=== PATIENT | female | born 1985 | race African-American/Black ===

== ENCOUNTER 2017-04-02 18:51 | Inpatient (IN) | payer MEDICAID ==
[~2017-04-02] VITALS: Ht 167.6 cm; Wt 79.8 kg
[2017-04-02] VITALS (22 sets, daily range): BP systolic 79–115; BP diastolic 52–70; PULSE 62–127; RESP 13–16; TEMP 98.4
[2017-04-02] MEDS: LACTATED RINGER'S 1000 ML INJ 1,000 ML IV SCH ×2 (19:42→20:51)
[2017-04-02 20:22] LABS: AUTOMATED NEUTROPHIL # 8.1 TH/MM3 (1.8-7.7); BASOPHIL % 0.5 % (0.0-2.0); EOSINOPHIL # 0.1 TH/MM3 (0-0.4); EOSINOPHIL % 0.8 % (0.0-4.0); HEMATOCRIT 26.2 % (35.0-46.0); HEMO FLAGS DIFF FINAL; LYMPH % 14.2 % (9.0-44.0); LYMPHOCYTE # 1.5 TH/MM3 (1.0-4.8); MEAN CELL VOLUME 62.7 FL (80.0-100.0); MEAN CORPUSCULAR HEMOGLOBIN 19.7 PG (27.0-34.0); MEAN CORPUSCULAR HGB CONC 31.4 % (32.0-36.0); MONO % 5.9 % (0.0-8.0); NEUT % 78.6 % (16.0-70.0); PLATELET COUNT 328 TH/MM3 (150-450); RED BLOOD COUNT 4.18 MIL/MM3 (4.00-5.30); RED CELL DISTRIBUTION WIDTH 16.5 % (11.6-17.2); WHITE BLOOD COUNT 10.3 TH/MM3 (4.0-11.0)
[2017-04-02 20:27] LABS: BACTERIA, URINE RARE /hpf; BLOOD, URINE NEG (NEG); COMMENT (UR) CULT NOT INDICATED; CULTURE IF INDICATED CULT NOT INDICATED; GLUCOSE,URINE NEG (NEG); KETONE, URINE 40 mg/dL (NEG); MUCUS URINE FEW /lpf (OCC); NITRITE,URINE NEG (NEG); SQUAMOUS EPITHELIAL CELL URINE 2 /hpf (0-5); URINE COLOR YELLOW (YELLW/STRAW)
[2017-04-02] MEDS ORDERED: MAGNESIUM SULFATE 4 GM PREMIX 100 ML ONE (20:45)
[2017-04-02] MEDS ORDERED: MAGNESIUM SULFATE 40 GM PREMIX 1,000 ML ONE (20:46)
[2017-04-02] MEDS ORDERED: MAGNESIUM SULFATE 40 GM PREMIX 1,000 ML IV SCH (20:51)
[2017-04-02 20:52] LABS: ALKALINE PHOSPHATASE 109 U/L (45-117); ALT (GPT) 9 U/L (10-53); ANION GAP 12 MEQ/L (5-15); AST (GOT) 22 U/L (15-37); BLOOD UREA NITROGEN 6 MG/DL (7-18); CHLORIDE 102 MEQ/L (98-107); GLOMERULAR FILTRATION RATE 109 ML/MIN (>89); POTASSIUM 3.4 MEQ/L (3.5-5.1); SODIUM (NA) 135 MEQ/L (136-145); TOTAL BILIRUBIN ADULT 0.6 MG/DL (0.2-1.0)
[2017-04-02] MEDS ORDERED: MAGNESIUM SULFATE 4 GM PREMIX 100 ML IV ONE (21:00)
[2017-04-02] MEDS ORDERED: ACETAMINOPHEN 325 MG TAB PO PRN (21:00)
[2017-04-02] MEDS ORDERED: LIDOCAINE 2% JELLY 30 ML TUBE ONE (21:15)
[2017-04-02] MEDS: levETIRAcetam 500 MG TAB PO SCH (21:15)
[2017-04-02 21:26] LABS: AMPHETAMINE, URINE NEG (NEG); BARBITURATES, URINE NEG (NEG); COCAINE, URINE NEG (NEG)
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
[2017-04-02] MEDS: BETAMETHASONE SOD PHOS/ACETATE SUSP 30 MG/5 ML VIAL IM SCH (22:32)
[2017-04-03] VITALS (61 sets, daily range): BP systolic 91–119; BP diastolic 38–64; PULSE 62–94; RESP 16–18; TEMP 97.8–98.4
[2017-04-03] MEDS: IRON SUCROSE INJ 200 MG in SODIUM CHLORIDE 0.9% INJ 100 ML IV SCH ×2 (01:00→23:00)
[2017-04-03] MEDS: LACTATED RINGER'S 1000 ML INJ 1,000 ML IV SCH ×2 (03:42→04:51)
--- NOTE | 2017-04-03 08:17 | PD.OB.ANTE ---
Subjective Diagnosis: (1) uterine contractions in third trimester, antepartum (2) History of delivery, currently in third trimester Interval History No lof, no vb. Still has back pain and pelvic pain that is 6/10 in intensity. Antepartum ROS: Reports: movement normal Objective Vital Signs Vital Signs Date Time Temp Pulse Resp B/P Pulse Ox O2 Delivery O2 Flow Rate FiO2 04/03/17 08:00 71 04/03/17 07:30 76 04/03/17 07:25 71 04/03/17 07:20 70 04/03/17 07:15 71 04/03/17 07:10 70 04/03/17 07:05 80 04/03/17 06:30 72 04/03/17 06:23 98.1 04/03/17 06:16 16 04/03/17 06:15 69 04/03/17 06:14 91/38 04/03/17 05:05 18 04/03/17 05:00 75 106/59 04/03/17 04:15 18 04/03/17 04:00 73 98/64 04/03/17 04:00 89 04/03/17 03:43 16 04/03/17 03:10 76 04/03/17 03:05 72 04/03/17 03:00 74 105/55 04/03/17 03:00 77 04/03/17 02:35 16 04/03/17 02:10 63 04/03/17 02:05 68 04/03/17 02:00 65 106/54 04/03/17 02:00 69 04/03/17 01:55 67 04/03/17 01:55 16 04/03/17 01:54 71 104/58 04/03/17 01:50 62 04/03/17 01:45 64 04/03/17 01:00 16 04/03/17 00:15 16 04/03/17 00:00 70 99/55 04/02/17 23:15 98.4 04/02/17 23:11 72 16 115/54 04/02/17 23:10 67 04/02/17 23:05 68 04/02/17 23:01 77 79/57 04/02/17 23:00 75 04/02/17 22:44 13 04/02/17 22:40 69 04/02/17 22:38 62 108/55 04/02/17 22:35 69 04/02/17 22:30 73 04/02/17 21:26 16 04/02/17 21:25 127 04/02/17 21:20 65 112/67 04/02/17 21:20 66 04/02/17 21:15 76 112/57 04/02/17 21:15 73 04/02/17 21:05 70 04/02/17 21:02 16 04/02/17 21:01 69 103/52 04/02/17 21:00 71 04/02/17 19:25 126 113/70 04/02/17 19:20 70 04/02/17 19:15 90 Lab & Micro Results Test 04/02/17 04/02/17 04/02/17 19:06 19:40 20:05 Urine Color YELLOW Urine Turbidity CLEAR Urine pH 6.0 Urine Specific [place] 1.022 Urine Protein 30 mg/dL Urine Glucose (UA) NEG mg/dL Urine Ketones 40 mg/dL Urine Occult Blood NEG Urine Nitrite NEG Urine Bilirubin NEG Urine Urobilinogen LESS THAN 2.0 MG/DL Urine Leukocyte Esterase NEG Urine RBC LESS THAN 1 /hpf Urine WBC 2 /hpf Urine Squamous Epithelial 2 /hpf Cells Urine Bacteria RARE /hpf Urine Mucus FEW /lpf Microscopic Urinalysis Comment CULT NOT INDICATED Urine Opiates Screen NEG Urine Barbiturates Screen NEG Urine Amphetamines Screen NEG Urine Benzodiazepines Screen NEG Urine Cocaine Screen NEG Urine Cannabinoids Screen POS Fibronectin NEGATIVE White Blood Count 10.3 TH/MM3 Red Blood Count 4.18 MIL/MM3 Hemoglobin 8.2 GM/DL Hematocrit 26.2 % Mean Corpuscular Volume 62.7 FL Mean Corpuscular Hemoglobin 19.7 PG Mean Corpuscular Hemoglobin 31.4 % Concent Red Cell Distribution Width 16.5 % Platelet Count 328 TH/MM3 Mean Platelet Volume 7.7 FL Neutrophils (%) (Auto) 78.6 % Lymphocytes (%) (Auto) 14.2 % Monocytes (%) (Auto) 5.9 % Eosinophils (%) (Auto) 0.8 % Basophils (%) (Auto) 0.5 % Neutrophils # (Auto) 8.1 TH/MM3 Lymphocytes # (Auto) 1.5 TH/MM3 Monocytes # (Auto) 0.6 TH/MM3 Eosinophils # (Auto) 0.1 TH/MM3 Basophils # (Auto) 0.0 TH/MM3 CBC Comment DIFF FINAL Differential Comment Sodium Level 135 MEQ/L Potassium Level 3.4 MEQ/L Chloride Level 102 MEQ/L Carbon Dioxide Level 21.0 MEQ/L Anion Gap 12 MEQ/L Blood Urea Nitrogen 6 MG/DL Creatinine 0.75 MG/DL Estimat Glomerular Filtration 109 ML/MIN Rate Random Glucose 72 MG/DL Calcium Level 8.9 MG/DL Ferritin 3 NG/ML Total Bilirubin 0.6 MG/DL Aspartate Amino Transf 22 U/L (AST/SGOT) Alanine Aminotransferase 9 U/L (ALT/SGPT) Alkaline Phosphatase 109 U/L Total Protein 8.1 GM/DL Albumin 3.2 GM/DL Physical Exam GENERAL: Well-nourished, well-developed patient. CARDIOVASCULAR: Regular rate and rhythm without murmurs, gallops, or rubs. RESPIRATORY: Breath sounds equal bilaterally. No accessory muscle use. ABDOMEN/GI: Abdomen soft, non-tender. Fundus: [-] GENITOURINARY: External Genitalia: intact and normal in appearance Cervix: defer Membranes: intact Uterine Contractions: irritable eariler this morning FHT's: Category: I Baseline: 120 Reactive:y Variability:mod Decels: [-] EXTREMITIES: No cyanosis or edema, non-tender, without signs of DVT. Assessment and Plan Assessment and Plan 31y/o at 32w5d, with h/o PTB times 3, witnessed seizure like activity on admission. -reassuring status -contractions q 1-2 on admission, have spaced apart but complaining of worsening back pain and abdominal pain -h/o PTB not on 17P -chronic anemia, h/o blood transfusion Plan -On Magnesium sulfate, Betamethasone (2129) for neuroprotection and to decrease seizure threshold -restart Ioana, [facility] and verified dosage (500mg twice daily) -Neurology consult ordered -Ferritin Level, Venofer infusion at 1am. Has Heme referral for outpt -Will continue to monitor on AP, await for second dose of betamethasone before evaluation for discharge. - Pt has poor social support, no reliable transportation Yasmine Black MD April 03, 2017 08:17 - Pt has poor social support, no reliable transportation Yasmine Black MD April 03, 2017 08:17
[2017-04-03] MEDS: levETIRAcetam 500 MG TAB PO SCH ×2 (09:00→21:00)
[2017-04-03] MEDS ORDERED: IRON SUCROSE INJ 200 MG in SODIUM CHLORIDE 0.9% INJ 100 ML IV SCH (09:00)
[2017-04-03] MEDS: hydrOXYzine PAMOATE 25 MG CAP PO PRN ×2 (11:22→21:31)
[2017-04-03] MEDS ORDERED: LORazepam 0.5 MG TAB PO ONE (12:45)
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
[2017-04-03] MEDS ORDERED: NICOTINE 14 MG/24 HR PATCH T-DERMAL ONE (21:00)
[2017-04-03] MEDS: BETAMETHASONE SOD PHOS/ACETATE SUSP 30 MG/5 ML VIAL IM SCH (21:00)
[2017-04-03] MEDS: ZOLPIDEM TARTRATE 5 MG TAB PO SCH (21:31)
[2017-04-04] VITALS (10 sets, daily range): BP systolic 105–111; BP diastolic 49–60; PULSE 72–98; RESP 18–20; TEMP 98.3–98.8
[2017-04-04] MEDS: ZOLPIDEM TARTRATE 5 MG TAB PO SCH (00:14)
[2017-04-04] MEDS ORDERED: IRON SUCROSE INJ 100 MG in SODIUM CHLORIDE 0.9% INJ 100 ML IV ONE (07:00)
[2017-04-04] MEDS ORDERED: HYDR1CAP30 PO (09:55)
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
[2017-04-04] MEDS ORDERED: PERI8.6T PO (10:22)
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
--- NOTE | 2017-04-04 10:36 | HHI.DS ---
Discharge Summary Admission Date April 02, 2017 at 20:52 Discharge Date: April 04, 2017 Admitting Diagnosis labor Seizure disorder anemia PTSD (1) uterine contractions in third trimester, antepartum Diagnosis: Principal (2) Anemia Diagnosis: Principal (3) Seizure disorder Diagnosis: Principal (4) PTSD (post-traumatic stress disorder) Brief History Pt is a admitted at 32w4d for anemia, while being evaluated in triage she had a possible seizure. Neurology was consulted; pt declines kepra or further intervention; she is well establish with Dr. Curtis in [place] and she will see him for outpt EEG. She has seen him since 2007. Pt also had c /o contractions in triage; she had been having n/v for 1 wk and was unable to luis po. She was 1-2 cm dilated at time of admission. She received IVF, BMS x2 , Mag x12 hours with resolution of contractions. She is able to luis po well now , eating full meals. No further contractions perceived by pt or on toco this morning. Fetus reactive. PTL precautions reviewed; will be on bedrest until seen in clinic next week. She has h/o significant of ptsd and has had increased anxiety; she did well no vistaril in house, sent home with rx. With regards to anemia, discussed iv iron infusion vs transfusion. Preferred iv iron, has had 2 doses. Will f/u with hematology for further treatment. CBC/BMP: 04/02/17200404/02/172004 Significant Findings Laboratory Tests Test 04/02/17 04/02/17 19:06 20:05 Urine Protein 30 mg/dL (NEG-TRACE) Urine Ketones 40 mg/dL (NEG) Urine Bacteria RARE /hpf (NONE) Urine Mucus FEW /lpf (OCC) Urine Cannabinoids Screen POS (NEG) Hemoglobin 8.2 GM/DL (11.6-15.3) Hematocrit 26.2 % (35.0-46.0) Mean Corpuscular Volume 62.7 FL (80.0-100.0) Mean Corpuscular Hemoglobin 19.7 PG (27.0-34.0) Mean Corpuscular Hemoglobin 31.4 % Concent (32.0-36.0) Neutrophils (%) (Auto) 78.6 % (16.0-70.0) Neutrophils # (Auto) 8.1 TH/MM3 (1.8-7.7) Sodium Level 135 MEQ/L (136-145) Potassium Level 3.4 MEQ/L (3.5-5.1) Blood Urea Nitrogen 6 MG/DL (7-18) Random Glucose 72 MG/DL (74-106) Ferritin 3 NG/ML (8-252) Alanine Aminotransferase 9 U/L (10-53) (ALT/SGPT) Albumin 3.2 GM/DL (3.4-5.0) Pt Condition on Discharge: Good Discharge Disposition: Discharge Home Discharge Instructions DIET: Follow Instructions for: As Tolerated, No Restrictions Speech Therapy-Diet Recommenda: Regular Activities you can perform: Pelvic Rest, See Additionl Instruction Additional Activity Instructio: modified bedrest Yasmine Black MD April 04, 2017 10:36
--- NOTE | 2017-04-04 11:10 | PD.CONS ---
Provisional Diagnosis Admission Date April 02, 2017 at 20:52 History of Present Illness Service Psychiatry Consult Requested By Primary Care Physician No Primary Care Physician Past Family Social History Coded Allergies: No Known Allergies (Unverified , 04/03/17) Active Scripts Sennosides-Docusate Sodium (Tori-Colace)8.6-50 Mg Tab1 Tab PO BID PRN ( CONSTIPATION) #60 TAB Ref 0 Prov:Yasmine Black MD 04/04/17 Hydroxyzine Pamoate 25 Mg Cap25 Mg PO Q6H PRN (PAIN SCALE 1 TO 10) #60 CAP Prov:Yasmine Black MD 04/04/17 Current Medications Medications (Trade) Dose Ordered Sig/Tosha Route Start Time Stop Time Status Last Admin (Lr 1000 ml Inj) 1,000 ml @ 125 mls/hr Q8H IV 04/02/17 19:42 04/03/17 03:42 Acetaminophen 650 mg 650 mg Q4H PRN PO 04/02/17 21:00 04/03/17 11:22 (Lr 1000 ml Inj) 1,000 ml @ 125 mls/hr Q8H IV 04/02/17 20:51 04/02/17 20:51 Levetriacetam 500 mg 500 mg Q12HR PO 04/02/17 21:15 04/02/17 21:15 (Venofer Inj/NS Inj) 110 ml @ 110 mls/hr Q24H IV 04/03/17 00:30 04/05/17 01:29 04/03/17 23:00 (Vistaril) 25 mg Q6H PRN PO 04/03/17 11:15 04/03/17 21:31 (Ambien) 5 mg HS PO 04/03/17 21:00 04/04/17 00:14 Physical Exam Vital Signs Vital Signs Date Time Temp Pulse Resp B/P Pulse Ox O2 Delivery O2 Flow Rate FiO2 04/04/17 09:55 91 04/04/17 08:02 98.8 04/04/17 08:02 20 105/60 Assessment & Plan Problem List: (1) PTSD (post-traumatic stress disorder) Assessment & Plan: Patient was discharged from the hospital. ICD Code: F43.10 Assessment & Plan Estimated LOS: days Michael Fairbanks MD April 04, 2017 11:10
== END 2017-04-04 11:08 | disposition home or self-care (01) | DRG 778 ==
LOC: HOBED 18:51 → H2EA 20:52
PROVIDERS: ADMIT Obstetrics & Gynecology; ATTEND Obstetrics & Gynecology
DX: O60.03 Preterm labor without delivery, third trimester (principal); O99.353 Diseases of the nervous system complicating pregnancy, third trimester; G40.409 Other generalized epilepsy and epileptic syndromes, not intractable, without status epilepticus; O99.013 Anemia complicating pregnancy, third trimester; D64.9 Anemia, unspecified; Z3A.32 32 weeks gestation of pregnancy; O99.343 Other mental disorders complicating pregnancy, third trimester; F43.10 Post-traumatic stress disorder, unspecified; Z91.14 Patient's other noncompliance with medication regimen
CPT/HCPCS: 59025; 76815; 80053; 80307; 81001; 82728; 82731; 85025; 96361; 96372; 96374; J0702; J1756; J3475; J7120; Q0177

== ENCOUNTER 2017-05-11 17:50 | Inpatient (IN) | payer MEDICAID ==
[2017-05-11] VITALS (8 sets, daily range): BP systolic 102–120; BP diastolic 55–70; PULSE 58–98; RESP 16–18; TEMP 98–98.1
[~2017-05-11 17:50] MED LIST: HYDR1CAP30 PO; PERI8.6T PO
[2017-05-11] MEDS ORDERED: LIDOCAINE HCL 1% 50 ML VIAL ONE (19:10)
[2017-05-11] MEDS: LACTATED RINGER'S 1000 ML INJ 1,000 ML IV SCH (19:32)
[2017-05-11] MEDS ORDERED: LACTATED RINGER'S 1000 ML INJ 1,000 ML IV PRN (19:56)
[2017-05-11] MEDS ORDERED: SODIUM CHLORID 0.9% 500 ML INJ 500 ML IV PRN (20:00)
[2017-05-11] MEDS ORDERED: LIDOCAINE HCL 1% 50 ML VIAL I-DERMAL PRN (20:00)
[2017-05-11] MEDS ORDERED: LIDOCAINE HCL 1% 50 ML VIAL INFIL PRN (20:00)
[2017-05-11] MEDS ORDERED: CITRIC ACID-SODIUM CITRATE LIQ 30 ML UDC PO SCH (20:00)
[2017-05-11] MEDS ORDERED: MINERAL OIL 10 ML VIAL TOPICAL PRN (20:00)
[2017-05-11] MEDS ORDERED: OXYTOCIN 30 UNITS-500ML PREMIX 500 ML IV ONE (20:00)
[2017-05-11] MEDS ORDERED: SODIUM CHLOR 0.9% 1000 ML INJ 1,000 ML IV PRN (20:16)
[2017-05-11 20:22] LABS: AUTOMATED NEUTROPHIL # 6.5 TH/MM3 (1.8-7.7); BASOPHIL % 0.5 % (0.0-2.0); EOSINOPHIL % 0.5 % (0.0-4.0); HEMATOCRIT 28.1 % (35.0-46.0); HEMO FLAGS DIFF FINAL; LYMPH % 18.3 % (9.0-44.0); LYMPHOCYTE # 1.6 TH/MM3 (1.0-4.8); MEAN CELL VOLUME 66.4 FL (80.0-100.0); MEAN CORPUSCULAR HEMOGLOBIN 21.3 PG (27.0-34.0); MONO % 4.3 % (0.0-8.0); NEUT % 76.4 % (16.0-70.0); PLATELET COUNT 274 TH/MM3 (150-450); RED BLOOD COUNT 4.23 MIL/MM3 (4.00-5.30); RED CELL DISTRIBUTION WIDTH 21.3 % (11.6-17.2); WHITE BLOOD COUNT 8.5 TH/MM3 (4.0-11.0)
[2017-05-11] MEDS ORDERED: OXYTOCIN 30 UNITS/NS 500ML PREMIX IV SCH (21:30)
[2017-05-11] MEDS ORDERED: ePHEDrine/NS 25 MG/5 ML SYR ONE (22:32)
[2017-05-11] MEDS ORDERED: fentaNYL 2MCG-BUPIV 0.125% INJ 100 ML ONE (22:32)
[2017-05-11] MEDS: ONDANSETRON HCL 4 MG/2 ML VIAL IV PRN (22:38)
[2017-05-11] MEDS: fentaNYL 2MCG-BUPIV 0.125% 100 ML EPIDURAL SCH (23:11)
[2017-05-11] MEDS ORDERED: ePHEDrine/NS 25 MG/5 ML SYR IV PRN (23:15)
[2017-05-11] MEDS ORDERED: NO SYSTEM NARCOTICS PRN (23:15)
[2017-05-11] MEDS ORDERED: DO NOT ADMINISTER ANTICOAGULANTS PRN (23:15)
[2017-05-12] VITALS (20 sets, daily range): BP systolic 81–118; BP diastolic 40–73; PULSE 46–80; RESP 16–18; TEMP 97.5–98.3
[2017-05-12 00:21] LABS: BACTERIA, URINE RARE /hpf; BLOOD, URINE NEG (NEG); COMMENT (UR) CULT NOT INDICATED; CULTURE IF INDICATED CULT NOT INDICATED; GLUCOSE,URINE NEG (NEG); KETONE, URINE TRACE mg/dL (NEG); MUCUS URINE FEW /lpf (OCC); NITRITE,URINE NEG (NEG); SQUAMOUS EPITHELIAL CELL URINE 2 /hpf (0-5); URINE COLOR YELLOW (YELLW/STRAW)
[2017-05-12] MEDS: LACTATED RINGER'S 1000 ML INJ 1,000 ML IV SCH ×3 (03:56→11:58)
[2017-05-12] MEDS: fentaNYL 2MCG-BUPIV 0.125% 100 ML EPIDURAL SCH (05:23)
[2017-05-12 06:15] LABS: AMPHETAMINE, URINE NEG (NEG); BARBITURATES, URINE NEG (NEG); COCAINE, URINE NEG (NEG)
--- NOTE | 2017-05-12 07:36 | PD.LABORPN ---
Subjective Subjective Slow night with much nursing intervention. Has double internals and now 8/90%/ 0 FHR 100's Good BTB variability a few earlies anticipate Objective Vital Signs Vital Signs Date Time Temp Pulse Resp B/P Pulse Ox O2 Delivery O2 Flow Rate FiO2 05/12/17 07:00 80 96/59 05/12/17 06:30 79 92/53 05/12/17 06:00 52 97/67 05/12/17 05:30 59 94/62 05/12/17 05:22 97.7 18 05/12/17 05:00 52 98/60 05/12/17 04:30 50 84/50 05/12/17 04:00 48 99/61 05/12/17 03:31 52 81/40 05/12/17 03:00 56 99/54 05/12/17 02:30 58 97/49 05/12/17 02:29 97.5 18 05/12/17 02:01 94/55 05/12/17 02:01 49 05/12/17 01:43 18 05/12/17 01:31 46 96/60 05/12/17 01:00 98.1 18 05/12/17 01:00 48 100/54 05/12/17 00:32 50 99/57 05/12/17 00:01 53 100/55 05/12/17 00:01 53 100/55 Objective Pelvic Exam: Cervix: [-] Dilatation: [-] Effacement: [-] Station: [-] Presentation: [-] Membranes: [intact or ruptured] Uterine Contractions: [-] FHT's: Category: [-] Baseline: [-] Reactive: [-] Variability: [-] Decels: [-] Beth Jeter MD May 12, 2017 07:36
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
[2017-05-12] MEDS: ONDANSETRON HCL 4 MG/2 ML VIAL IV PRN (11:55)
[2017-05-12] MEDS ORDERED: LORazepam 2 MG/ML VIAL ONE (12:06)
--- NOTE | 2017-05-12 12:18 | PD.OB.DELI ---
Anesthesia: Epidural Episiotomy: None Vaginal Delivery: Normal Presentation: Occiput anterior Nuchal Cord: None Delayed cord clamping (45 sec): Yes Infant: Male One Minute : 9 Five Minute : 9 Weight: 6 9 Placenta: Spontaneous delivery Laceration: No lacerations (For Adoption ) Beth Jeter MD May 12, 2017 12:18
[2017-05-12] MEDS ORDERED: ALUMINUM/MAGNESIUM/SIMETH 30 ML CUP PO PRN (12:30)
[2017-05-12] MEDS ORDERED: ZOLPIDEM TARTRATE 5 MG TAB PO PRN (12:30)
[2017-05-12] MEDS ORDERED: SODIUM CHLORIDE 0.9% FLUSH 10 ML FLUSH IV FLUSH PRN (12:30)
[2017-05-12] MEDS ORDERED: LORazepam 2 MG/ML VIAL IM ONE (12:30)
[2017-05-12] MEDS ORDERED: DOCUSATE SODIUM 50 MG/SENNA 8.6 MG TAB PO PRN (12:30)
[2017-05-12] MEDS ORDERED: WITCH HAZEL 50%/GLYCERIN 12.5% 40 PAD JAR TOPICAL PRN (12:30)
[2017-05-12] MEDS ORDERED: ONDANSETRON ODT 4 MG TAB PO PRN (12:30)
[2017-05-12] MEDS ORDERED: BENZOCAINE 20% TOPICAL SPRAY 60 ML CAN TOPICAL PRN (12:30)
[2017-05-12] MEDS: IBUPROFEN 600 MG TAB PO PRN ×2 (13:30→20:02)
[2017-05-12] MEDS ORDERED: LORazepam 1 MG TAB PO ONE (15:00)
[2017-05-12] MEDS: ACETAMINOPHEN 325 MG TAB PO PRN ×2 (15:22→20:02)
[2017-05-12] MEDS ORDERED: AMMONIA AROMATIC INHALANT 0.33 ML ONE (15:50)
[2017-05-12] MEDS ORDERED: MEASLES, MUMPS, RUBELLA VACCINE 0.5 ML VIAL SQ ONE (16:00)
[2017-05-12] MEDS ORDERED: DIPHTH/TETANUS/ACEL PERTUSSIS (BOOSTER) 0.5 ML VIAL/PFS IM ONE (16:00)
[2017-05-12] MEDS ORDERED: QUEtiapine FUMARATE 25 MG TAB PO SCH (21:00)
[2017-05-12] MEDS ORDERED: SODIUM CHLORIDE 0.9% FLUSH 10 ML FLUSH IV FLUSH SCH (21:00)
[2017-05-12] MEDS ORDERED: ACETAMINOPHEN/HYDROcodone 325 MG/5 MG TAB PO ONE (21:45)
[2017-05-12] MEDS ORDERED: ALPRAZolam 0.5 MG TAB PO ONE (21:45)
[2017-05-13] MEDS: IBUPROFEN 600 MG TAB PO PRN (03:53)
[2017-05-13] MEDS: ACETAMINOPHEN 325 MG TAB PO PRN (03:53)
[2017-05-13 08:05] VITALS: BP 104/61; PULSE 73; RESP 18; TEMP 98
--- NOTE | 2017-05-13 10:39 | HHI.OB ---
Subjective Post Day: 1 Remarks PPD#1, Uncomplicated . for adoption. stable Objective Vitals/I&O Vital Signs Date Time Temp Pulse Resp B/P Pulse Ox O2 Delivery O2 Flow Rate FiO2 05/13/17 08:05 98.0 05/13/17 08:05 73 18 104/61 05/12/17 19:15 97/67 05/12/17 19:15 97.7 53 16 05/12/17 15:00 98.3 74 18 118/73 Objective Remarks GENERAL: Well-nourished, well-developed patient. CARDIOVASCULAR: Regular rate and rhythm without murmurs, gallops, or rubs. RESPIRATORY: Breath sounds equal bilaterally. No accessory muscle use. ABDOMEN/GI: Abdomen soft, non-tender. Fundus: Firm, non-tender at umbilicus. GENITOURINARY: Light to moderate bleeding. EXTREMITIES: No cyanosis or edema, non-tender, without signs of DVT. Medications and IVs Current Medications Medications (Trade) Dose Ordered Sig/[facility] Route Start Time Stop Time Status Last Admin Lactated Ringer's 1,000 ml @ 125 mls/hr Q8H IV 05/11/17 19:56 05/12/17 11:58 Lactated Ringer's 1,000 ml @ 3,000 mls/hr Q20M PRN IV 05/11/17 19:56 Sodium Chloride 500 ml @ 1,000 mls/hr ONCE PRN IV 05/11/17 20:00 05/18/17 19:59 05/12/17 00:18 (NS 1000 ml Inj) 1,000 ml @ 100 mls/hr Q10H PRN IV 05/11/17 20:16 (Zofran Inj) 4 mg Q6H PRN IV 05/11/17 20:00 05/12/17 11:55 (fentaNYL INJ) 50 mcg Q1H PRN IV PUSH 05/11/17 20:00 (fentaNYL INJ) 100 mcg Q1H PRN IV PUSH 05/11/17 20:00 Mineral Oil 10 ml 10 ml UNSCH PRN TOPICAL 05/11/17 20:00 Oxytocin 500 ml @ 0 mls/hr TITRATE IV 05/11/17 21:30 05/11/17 21:35 (fentaNYL 2MCG-BUPIV 0.125% INJ) 100 ml @ 0 mls/hr TITRATE EPIDURAL 05/11/17 23:15 05/12/17 05:23 (NS Flush) 2 ml BID IV FLUSH 05/12/17 21:00 (NS Flush) 2 ml UNSCH PRN IV FLUSH 05/12/17 12:30 (Tylenol) 650 mg Q4H PRN PO 05/12/17 12:30 05/13/17 03:53 (Motrin) 600 mg Q6H PRN PO 05/12/17 12:30 05/13/17 03:53 (Americaine 20% Top Spr) 1 spray Q4H PRN TOPICAL 05/12/17 12:30 (Tucks Pads) 1 applic QID PRN TOPICAL 05/12/17 12:30 (Tori-Colace) 2 tab Q12H PRN PO 05/12/17 12:30 (Ambien) 5 mg HS PRN PO 05/12/17 12:30 (Mag-Al Plus Susp Liq) 15 ml Q8H PRN PO 05/12/17 12:30 (Zofran Odt) 4 mg Q6H PRN PO 05/12/17 12:30 (SEROquel) 50 mg HS PO 05/12/17 21:00 Assessment/Plan Assessment and Plan PPD#1, , plan discharge to home, will follow up with dr gentile as outpatient Discharge Planning routine Attending Attestation seen by Louie Lemon MD May 13, 2017 10:39
[2017-05-13] MEDS ORDERED: LORA-474 PO (10:41)
[2017-05-13] MEDS ORDERED: KETO10 PO (10:42)
--- NOTE | 2017-05-13 10:43 | HHI.DS ---
Admission Date May 11, 2017 at 17:50 Admitting Diagnosis Diagnosis: Vaginal Delivery: Normal : Male Pt Condition on Discharge: Good Discharge Disposition: Discharge Home Discharge Instructions Diet Instructions: As Tolerated, No Restrictions Activities You Can Perform: Shower Only-No Bath Activities to Avoid: Driving for 24 hrs, Sexual Activity Louie Saunders MD May 13, 2017 10:43
[2017-05-15 09:16] LABS: BATH SALTS (MDPV) UR NEG (NEG); ECSTASY (MDMA) UR NEG (NEG); HEROIN (6-ACETYLMORPHINE) UR NEG (NEG); K2 SPICE UR NEG (NEG); OBMETHADONE UR NEG (NEG); PHENCYCLIDINE URINE NEG (NEG)
[2017-05-15 09:17] LABS: GABAPENTIN UR NEG (NEG); HYDROMORPHONE U NEG (NEG); OXYCODONE (PERCODAN) NEG (NEG)
== END 2017-05-13 11:52 | disposition home or self-care (01) | DRG 775 ==
LOC: H2EB 17:50 → H1EA 05-12 13:53
PROVIDERS: ADMIT Obstetrics & Gynecology; ATTEND Obstetrics & Gynecology
PROC: 10907ZC Drainage of Amniotic Fluid, Therapeutic from Products of Conception, Via Natural or Artificial Opening (ICD-10-PCS; 2017-05-11)
PROC: 3E0S3CZ (ICD-10-PCS; 2017-05-11)
PROC: 00HU33Z Insertion of Infusion Device into Spinal Canal, Percutaneous Approach (ICD-10-PCS; 2017-05-11)
PROC: 10E0XZZ Delivery of Products of Conception, External Approach (ICD-10-PCS; principal; 2017-05-12)
DX: O41.03X0 Oligohydramnios, third trimester, not applicable or unspecified (principal); O99.354 Diseases of the nervous system complicating childbirth; G40.909 Epilepsy, unspecified, not intractable, without status epilepticus; O99.02 Anemia complicating childbirth; D64.9 Anemia, unspecified; Z3A.37 37 weeks gestation of pregnancy; Z37.0 Single live birth
CPT/HCPCS: 59025; 80307; 81001; 85025; 86900; 86901; G0481; J2060; J2405; J2590; J7040; J7120